=== PATIENT | female | born 1995 | race Caucasian/White ===

== ENCOUNTER 2021-08-24 15:34 | Emergency (ER) | payer OTHER, SELFPAY ==
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
--- NOTE | 2021-08-24 17:02 | RAD REPORT ---
EXAM DESCRIPTION: RAD - Tib Fib Right - 08/24/2021 4:54 pm CLINICAL HISTORY: fall COMPARISON: No comparisons FINDINGS: No acute fracture or dislocation is seen.
--- NOTE | 2021-08-24 17:11 | RAD REPORT ---
EXAM DESCRIPTION: RAD - Foot Right 3 View - 08/24/2021 4:54 pm CLINICAL HISTORY: fall Fall, trauma, pain COMPARISON: No comparisons FINDINGS: No acute fracture or dislocation seen.
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
[2021-08-24 19:15] VITALS: BP 124/82; TEMP 98.4; O2SAT 98
== END 2021-08-24 18:33 | disposition home or self-care (01) ==
LOC: ER 15:34
DX: S16.1XXA Strain of muscle, fascia and tendon at neck level, initial encounter (principal); S93.601A Unspecified sprain of right foot, initial encounter; V19.3XXA Pedal cyclist (driver) (passenger) injured in unspecified nontraffic accident, initial encounter; Y93.55 Activity, bike riding; Y92.9 Unspecified place or not applicable; R21 Rash and other nonspecific skin eruption; Z88.1 Allergy status to other antibiotic agents; Z91.018 Allergy to other foods; F17.210 Nicotine dependence, cigarettes, uncomplicated
CPT/HCPCS: 70450; 72125; 99284

== ENCOUNTER 2024-10-30 16:58 | Emergency (ER) | payer OTHER ==
--- OUTSIDE RECORDS SUMMARY | 2024-10-30 17:03 | XMS REPORT | Continuity of Care Document ---
Author Name Unknown Address [address] [facility] [address] [place] [address] [facility] thconnect Address [address] [facility] [address] [place] [address] Care Team Providers Care Bus Company Manager Name Role Phone JESSICA WALKER Attending Clinician Unavailab PEDRO Moya Attending Clinician Unavailab CHAO Washburn Attending Clinician UnavailTRENA Addison Attending Clinician Unavailable BILL HANCOCK Attending Clinician Unavailable SERA PAZ Attending Clinician Unavailable GAETANO RANDALL Attending Clinician Unavailable NASIR PERSON Attending Clinician Unavailable JULI DANIEL Attending Clinician Unavailable CARLYLE BOWEN Attending Clinician Unavailab sebastian DONOHUE_GRANT Attending Clinician Unavailable KEISHA AMIN Attending Clinician Unavail able MARY TRACEY Attending Clinician UnavailJERRY Nleson Attending Clinician Unavailable Jun Attending Clinician Unavailable KEMAR DE LEON Attending Clinician Unavailable YUKO FIERRO Attending Clinician Unavailable BENJY PEDROZA Attending Clinician Unavailab MONY Jones Attending Clinician Unavailable GAETANO WOOD Attending Clinician UnavailJOSÉ LUIS Mathews Attending Clinician Unavailable KARLEY NOLAND Attending Clinician Unavailable JUSTIN SCHREIBER Attending Clinician Unavaila GAETANO Johnson Attending Clinician UnavailAME Cantor Attending Clinician Unavailable JENNIFER MAYFIELD Attending Clinician TRISTIN Watkins Attending Clinician MARY Giang Attending Clinician Unavailable SHAYNE Admitting Clinician Unavailable Armand_Unique Admitting Clinician Unavailable JUSTIN SCHREIBER Admitting Clinician Unavaila GAETANO Ibarra Admitting Clinician UnavailAME Cantor Admitting Clinician Unavailable Payers Payer Name Policy Type Policy Number Effective Date Expirati on Date Source [place] [place] (MEDICAID) [id number] 2020 00:00:00 [facility] [employer] 1997 [facility] (MEDICAID HMO) [id number] Problems Condition Name Condition Details Condition Category Status Onset Date Resolution Date Last Treatment Date Treating Clinician Comments Source Pediculosi s capitis Pediculosi s Capitis Problem Active 2023-11 00:00: 00 [facility] Infestatio n by Phthirus pubis Infestatio n by Phthirus Pubis Problem Active 2023-11 00:00: 00 [facility] Schizophre kristen Schizophre kristen Problem Active 2023-11 00:00: 00 [facility] Acute pharyngiti s Acute Pharyngiti s Problem Active 03-03 00:00: 00 [facility] Dysuria Dysuria Problem Active 03-03 00:00: 00 [facility] Exposure to sexually transmissi ble disorder Exposure to Sexually Transmissi ble Disorder Problem Active 03-03 00:00: 00 [facility] Injury of right wrist Injury of Right Wrist Problem Active 03-03 00:00: 00 [facility] Body mass index 25-29 - overweight Body Mass Index 25-29 - Overweight Problem Active 03-03 00:00: 00 [facility] Overweight Overweight Problem Active 03-03 00:00: 00 [facility] Schizophre kristen Schizophre kristen Problem Active 06-06 00:00: 00 [facility] Bipolar disorder Bipolar Disorder Problem Active 06-06 00:00: 00 [facility] Anxiety Anxiety Problem Active 06-06 00:00: 00 [facility] Depressive disorder Depressive Disorder Problem Active 06-06 00:00: 00 [facility] Dysmenorrh ea Dysmenorrh ea Problem Active 2017-11 00:00: 00 [facility] Chronic pelvic pain of female Chronic Pelvic Pain of Female Problem Active 2017-11 00:00: 00 [facility] Female pelvic inflammato ry disease Female Pelvic Inflammato ry Disease Problem Active 07-20 00:00: 00 [facility] At increased risk of sexually transmitte d infection At Increased Risk of Sexually Transmitte d Infection Problem Active 07-20 00:00: 00 [facility] Venereal disease screening Venereal Disease Screening Problem Active 07-20 00:00: 00 [facility] Chlamydial cervicitis Chlamydial Cervicitis Problem Active 07-20 00:00: 00 [facility] Anxiety state Anxiety State Problem Active [facility] Hemorrhoid s Hemorrhoid s Problem Active [facility] Upper respirator y infection Upper Respirator y Infection Problem Active [facility] Urinary tract infectious disease Urinary Tract Infectious Disease Problem Active [facility] Cervical intraepith elial neoplasia grade 1 Cervical Intraepith elial Neoplasia Grade 1 Problem Active [facility] Vaginal discharge Vaginal Discharge Problem Active [facility] Menorrhagi a Menorrhagi a Problem [facility] Excessive and frequent menstruati on Excessive and Frequent Menstruati on Problem Active [facility] Irregular periods Irregular Periods Problem Active [facility] Missed period Missed Period Problem Active [facility] Placenta previa partialis Placenta Previa Partialis Problem Active [facility] - induced hypertensi on - induced Hypertensi on Problem Active [facility] Pre-eclamp homero Pre-eclamp homero Problem Active [facility] Maternal drug exposure Maternal Drug Exposure Problem Active [facility] Abscess Abscess Problem Active [facility] Increased frequency of urination Increased Frequency of Urination Problem [facility] Atypical squamous cells of undetermin ed significan ce on cervical Papanicola ou smear Atypical Squamous Cells of Undetermin ed Significan ce on Cervical Papanicola ou Smear Problem Active [facility] Low lying placenta Low Lying Placenta Problem Active [facility] Platelet count below reference range Platelet Count below Reference Range Problem Active [facility] Complainin g of pelvic pain Complainin g of Pelvic Pain Problem Active [facility] Chlamydial infection Chlamydial Infection Problem Active [facility] Unemployed Complaint [facility] Disturbanc e in mood Complaint [facility] Severe manic bipolar I disorder with psychotic features, mood-congr uent Complaint [facility] Generalize d anxiety disorder Complaint [facility] Panic attack Complaint [facility] Cannabis dependence Complaint [facility] Amphetamin e dependence Complaint [facility] Cocaine dependence Complaint [facility] Attention deficit hyperactiv ity disorder Complaint [facility] Borderline personalit y disorder Complaint [facility] Posttrauma tic stress disorder Complaint [facility] Injury of head Complaint [facility] Fracture of three ribs Complaint [facility] History of tonsillect don Complaint [facility] Allergies, Adverse Reactions, Alerts Allergy Name Allergy Type Status Severity Reaction(s) Onset Date Inactive Date Treating Clinician Comments Source Pear Allergy to substanc e Active Rash/Hives, Dyspnea, Nausea, Swelling 1998-11 12:00: 00 [facility] Pear Food Allergy Active 1998-11 00:00: 00 [facility] amoxicil malik Drug Allergy Active 1997-11 00:00: 00 [facility] Amoxicil malik Allergy to substanc e Active Moderate to severe Hives [facility] Social History Smoking Status Start Date Stop Date Source Never Smoker [facility] Heavy Tobacco Smoker [facility] Medications Ordered Medication Name Filled Medication Name Start Date Stop Date Current Medication? Ordering Clinician Indication Dosage Frequency Signature (SIG) Comments Components Source Depakote 500 mg tablet,antonio yed release Take 1 tablet twice a day by oral route. Depakote 500 mg tablet,antonio yed release Take 1 tablet twice a day by oral route. No 1 BID Depakote 500 mg tablet,del ayed release Take 1 tablet twice a day by oral route. [facility] Natroba 0.9 % topical suspension APPLY 30 - 120 MILLILITERS BY TOPICAL ROUTE TO DRY HAIR, SATURATING HAIR AND SCALP. AFTER 10 MIN RINSE WITH WARM WATER. MAY REPEAT IN 7 DAYS Natroba 0.9 % topical suspension APPLY 30 - 120 MILLILITERS BY TOPICAL ROUTE TO DRY HAIR, SATURATING HAIR AND SCALP. AFTER 10 MIN RINSE WITH WARM WATER. MAY REPEAT IN 7 DAYS No Natroba 0.9 % topical suspension APPLY 30 - 120 MILLILITER S BY TOPICAL ROUTE TO DRY HAIR, SATURATING HAIR AND SCALP. AFTER 10 MIN RINSE WITH WARM WATER. MAY REPEAT IN 7 DAYS [facility] permethrin 1 % topical liquid APPLY A SUFFICIENT AMOUNT OF SHAMPOO to pubic BY TOPICAL ROUTE ONCE ALLOW TO REMAIN ON HAIR FOR 10 MINUTES BEFORE RINSING OFF WITH WATER permethrin 1 % topical liquid APPLY A SUFFICIENT AMOUNT OF SHAMPOO to pubic BY TOPICAL ROUTE ONCE ALLOW TO REMAIN ON HAIR FOR 10 MINUTES BEFORE RINSING OFF WITH WATER No permethrin 1 % topical liquid APPLY A SUFFICIENT AMOUNT OF SHAMPOO to pubic BY TOPICAL ROUTE ONCE ALLOW TO REMAIN ON HAIR FOR 10 MINUTES BEFORE RINSING OFF WITH WATER [facility] Seroquel 100 mg tablet Take 1 tablet twice a day by oral route. Seroquel 100 mg tablet Take 1 tablet twice a day by oral route. No 1 BID Seroquel 100 mg tablet Take 1 tablet twice a day by oral route. [facility] sertraline sertraline No sertraline [facility] buspirone buspirone No buspirone [facility] hydroxyzine HCl hydroxyzine HCl No hydroxyzin e HCl [facility] Latuda 120 mg tablet Take 1 tablet every day by oral route. Latuda 120 mg tablet Take 1 tablet every day by oral route. No 1 Q1D Latuda 120 mg tablet Take 1 tablet every day by oral route. [facility] metronidazo le 500 mg tablet Take 1 tablet every 12 hours by oral route for 7 days. metronidazo le 500 mg tablet Take 1 tablet every 12 hours by oral route for 7 days. No metronidaz ole 500 mg tablet Take 1 tablet every 12 hours by oral route for 7 days. [facility] permethrin 5 % topical cream APPLY (THOROUGHLY MASSAGE INTO SKIN FROM HEAD TO SOLES OF FEET) BY TOPICAL ROUTE ONCE LEAVE ON FOR 8-14 HR, THEN REMOVE BY THOROUGH WASHING permethrin 5 % topical cream APPLY (THOROUGHLY MASSAGE INTO SKIN FROM HEAD TO SOLES OF FEET) BY TOPICAL ROUTE ONCE LEAVE ON FOR 8-14 HR, THEN REMOVE BY THOROUGH WASHING No permethrin 5 % topical cream APPLY (THOROUGHL Y MASSAGE INTO SKIN FROM HEAD TO SOLES OF FEET) BY TOPICAL ROUTE ONCE LEAVE ON FOR 8-14 HR, THEN REMOVE BY THOROUGH WASHING [facility] Xulane 150 mcg-35 mcg/24 hr transdermal patch Apply 1 patch every week by transdermal route. Xulane 150 mcg-35 mcg/24 hr transdermal patch Apply 1 patch every week by transdermal route. No Xulane 150 mcg-35 mcg/24 hr transderma l patch Apply 1 patch every week by transderma l route. [facility] Immunizations Ordered Immunization Name Filled Immunization Name Date Status Comments Source tetanus toxoid, adsorbed tetanus toxoid, adsorbed Unknown Completed [facility] Vital Signs Vital Name Observation Time Observation Value Comments S ource BMI (Body Mass Index) 2024-09-16 00:00:00 24.9 kg/m2 [facility] Body Weight 2024-09-16 00:00:00 2548.8 [oz_av] [facility] Height 2024-09-16 00:00:00 67 [in_i] [facility] BP Diastolic 2024-09-16 00:00:00 80 mm[Hg] [facility] BP Systolic 2024-09-16 00:00:00 124 mm[Hg] [facility] Body Weight 2024-06-22 00:00:00 159 [lb_av] [facility] BMI (Body Mass Index) 2024-06-22 00:00:00 24.9 kg/m2 [facility] Height 2024-06-22 00:00:00 67 [in_i] [facility] BP Systolic 2024-06-22 00:00:00 142 mm[Hg] [facility] BP Diastolic 2024-06-22 00:00:00 89 mm[Hg] [facility] Height 2024-05-22 00:00:00 67 [in_i] [facility] BP Diastolic 2024-05-22 00:00:00 80 mm[Hg] [facility] BMI (Body Mass Index) 2024-05-22 00:00:00 27.5 kg/m2 [facility] Body Weight 2024-05-22 00:00:00 2806 [oz_av] [facility] BP Systolic 2024-05-22 00:00:00 119 mm[Hg] [facility] BP Systolic 2024-03-03 00:00:00 118 mm[Hg] [facility] BMI (Body Mass Index) 2024-03-03 00:00:00 26.5 kg/m2 [facility] Body Weight 2024-03-03 00:00:00 2705 [oz_av] [facility] Height 2024-03-03 00:00:00 67 [in_i] [facility] BP Diastolic 2024-03-03 00:00:00 79 mm[Hg] [facility] BP Diastolic 2021-06-06 00:00:00 79 mm[Hg] [facility] Height 2021-06-06 00:00:00 65 [in_i] [facility] BMI (Body Mass Index) 2021-06-06 00:00:00 23.3 kg/m2 [facility] BP Systolic 2021-06-06 00:00:00 112 mm[Hg] [facility] Body Weight 2021-06-06 00:00:00 140 [lb_av] [facility] Procedures Procedure Date / Time Performed Performing Clinician Source XR, wrist, 3 or more view 2024-03-03 00:00:00 [facility] Tonsillectomy 2012-11-01 00:00:00 Gualberto delcid [facility] Plan of Care Planned Activity Planned Date Details Comments Source Diagnostic Test Pending 2021-06-06 00:00:00 RPR (rapid plasma reagin), serum [code = RPR (rapid plasma reagin), serum] [facility] Program Diagnostic Test Pending 2021-06-06 00:00:00 HIV 1+2 AB + HIV 1 p24 Ag, qualitative immunoassay, serum [code = HIV 1+2 AB + HIV 1 p24 Ag, qualitative immunoassay, serum] [facility] Diagnostic Test Pending 2021-06-06 00:00:00 HBsAg (hepatitis B surface Ag), EIA, serum [code = HBsAg (hepatitis B surface Ag), EIA, serum] [facility] Diagnostic Test Pending 2021-06-06 00:00:00 cytology report, thin prep, smear or scraping, cervical or vaginal [code = cytology report, thin prep, smear or scraping, cervical or vaginal] [facility] Diagnostic Test Pending 2021-06-06 00:00:00 HCG, intact + beta subunit, quant, serum or plasma [code = HCG, intact + beta subunit, quant, serum or plasma] [facility] Diagnostic Test Pending 2021-06-06 00:00:00 test, urine [code = test, urine] [facility] Encounters Start Date/Time End Date/Time Encounter Type Admission Type Attending [facility] Facility Care Department Encounter ID Source 2024-03-03 11:38:00 Inpatient JESSICA GIRON [facility] [id number] [facility] 2023-04-19 12:26:22 Inpatient VLADIMIR GILBERT [id number] [facility] 2023-01-02 08:02:57 Inpatient [facility] [id number] [facility] 2023-01-01 16:34:31 Inpatient [facility] [id number] [facility] 2022-09-18 11:57:51 Inpatient [facility] [id number] [facility] 2024-10-28 15:43:00 2024-10-28 17:50:00 Emergency ER PEDRO BERRIOS [facility] [id number] [facility] 2024-09-16 00:00:00 2024-09-16 00:00:00 Grant Bradley, STAIN MAKER: [address], [address], [place] [address] , Ph. [facility] [id number] [facility] 2024-08-21 21:48:00 2024-08-22 02:45:00 Emergency ER CHAO PANG [facility] [id number] [facility] 2024-08-22 01:14:00 2024-08-22 01:14:00 Outpatient [facility] T[facility]NA [facility] [id number] [facility] 2024-06-22 11:38:00 2024-06-22 11:38:00 Outpatient KARISSA BILL [facility] [id number] [facility] 2024-06-22 00:00:00 2024-06-22 00:00:00 NIGEL Ahmadi-BC: [address], [address], [place] [address] , Ph. [phone] [facility] [id number] [facility] 2024-05-25 04:19:00 2024-05-25 07:01:00 Emergency ER PEDRO BERRIOS [facility] [id number] [facility] 2024-05-22 00:00:00 2024-05-22 00:00:00 Dhruv Santizo MD: [address], [address], [place] [address] , Ph. [facility] [id number] [facility] 2024-03-03 00:00:00 2024-03-03 00:00:00 NIGEL Dorman-C: [address], [address], [place] [address] , Ph. [facility] [id number] [facility] 2023-10-04 17:45:00 2023-10-04 19:43:00 Emergency ER SERA PAZ [facility] [id number] [facility] 2021-12-04 11:22:00 2021-12-04 14:57:00 Emergency ER GAETANO RANDALL [facility] [id number] [facility] 2021-11-11 12:31:00 2021-11-11 14:57:00 Emergency ER NASIR PERSON [facility] [id number] [facility] 2021-10-14 22:57:00 2021-10-14 22:57:00 Outpatient FARZAD PANCHALLASHONDAUJLI [facility] [id number] [facility] 2021-09-03 23:22:00 2021-09-04 01:38:00 Emergency ER JESSICARLYLE PORRAS [facility] [id number] [facility] 2021-08-01 18:37:00 2021-08-02 00:00:00 Emergency ER RANDALLKMGAETANO [facility] [id number] [facility] 2021-06-06 00:00:00 2021-06-06 00:00:00 Grant Donohue, STAIN MAKER: [address], [place] [address] , Ph. ROCAEL [facility] [id number] [facility] 2021-05-30 01:00:00 2021-05-30 01:00:00 Outpatient ROCAEL SCHMID [facility] [id number] [facility] 2021-05-19 03:24:00 2021-05-19 03:24:00 Outpatient LISTER_MELI SSA [facility] [id number] [facility] 2021-05-16 02:26:00 2021-05-16 02:26:00 Outpatient LISTER_MELI [facility] [id number] [facility] 2021-04-08 06:24:00 2021-04-08 12:53:00 Emergency ER ELOISAKEISHA [facility] [id number] [facility] 2021-03-19 10:26:00 2021-03-19 10:30:00 Emergency ER NASIR PERSON [facility] [id number] [facility] 2021-03-09 07:22:00 2021-03-09 07:55:00 Emergency ER GAETANO RANDALL [facility] [id number] [facility] 2021-02-28 18:43:00 2021-02-28 20:45:00 Emergency ER MARY TRACEY [facility] [id number] [facility] 2021-01-27 07:08:00 2021-01-27 11:40:00 Emergency ER NASIR PERSON [facility] [id number] [facility] 2020-10-01 10:39:00 2020-10-01 13:18:00 Emergency ER JERRY MAYNARD [facility] [id number] [facility] 2020-09-18 02:20:00 2020-09-18 02:20:00 Outpatient G_[id number] [facility] 2019-07-29 11:41:00 2019-07-29 14:05:00 Emergency ER KEMAR DE LEON [facility] [id number] [facility] 2019-06-02 09:15:00 2019-06-02 13:45:00 Emergency ER JERRY MAYNARD [facility] [id number] [facility] 2018-07-20 14:49:00 2018-07-20 14:49:00 Outpatient YUKO WILL [facility] [id number] [facility] 2017-03-31 09:35:00 2017-03-31 13:45:00 Emergency ER JERRY MAYNARD [facility] [id number] [facility] 2016-04-10 22:52:00 2016-04-11 00:45:00 Emergency ER BENJY PEDROZA [facility] [id number] [facility] 2016-04-09 12:13:00 2016-04-09 14:07:00 Emergency ER MONY HASTINGS [facility] [id number] [facility] 2016-02-11 16:11:00 2016-02-11 16:11:00 Outpatient GAETANO COLVIN [facility] [id number] [facility] 2016-02-09 19:18:00 2016-02-09 20:41:00 Emergency ER JOSÉ LUIS BROWN [facility] [id number] [facility] 2016-01-01 11:43:00 2016-01-01 11:43:00 Outpatient GAETANO COLVIN [facility] [id number] [facility] 2015-11-07 15:03:00 2015-11-07 15:03:00 Outpatient GAETANO COLVIN [facility] [id number] [facility] 2015-08-12 12:39:00 2015-08-12 12:39:00 Outpatient GAETANO COLVIN [facility] [id number] [facility] 2015-07-12 14:00:00 2015-07-12 14:00:00 Outpatient GAETANO COLVIN [facility] [id number] [facility] 2015-06-11 12:19:00 2015-06-11 12:19:00 Outpatient GAETANO COLVIN [facility] [id number] [facility] 2015-04-24 15:24:00 2015-04-24 16:29:00 Emergency ER KARLEY NOLAND [facility] [id number] [facility] 2015-04-11 12:07:00 2015-04-11 12:07:00 Outpatient GAETANO COLVIN [facility] [id number] [facility] 2015-01-16 11:20:00 2015-01-16 11:20:00 Outpatient GAETANO COLVIN [facility] [id number] [facility] 2014-12-14 11:38:00 2014-12-14 11:38:00 Outpatient GAETANO COLVIN [facility] [id number] [facility] 2014-12-03 11:55:00 2014-12-03 11:55:00 Outpatient GAETANO COLVIN [facility] [id number] [facility] 2014-11-05 11:07:00 2014-11-05 11:07:00 Outpatient GAETANO COLVIN [facility] [id number] [facility] 2014-10-28 14:12:00 2014-10-28 15:53:00 Emergency ER JOSÉ LUIS BROWN [facility] [id number] [facility] 2014-10-20 07:54:00 2014-10-21 19:03:00 Inpatient ER JUSTIN [facility] [id number] [facility] 2014-10-18 09:22:00 2014-10-18 09:22:00 Outpatient GAETANO COLVIN [facility] [id number] [facility] 2014-10-15 13:17:00 2014-10-16 17:30:00 Inpatient GAETANO COLVIN [facility] [id number] [facility] 2014-10-10 09:59:00 2014-10-10 09:59:00 Outpatient GAETANO BERRIOS [facility] [id number] [facility] 2014-10-08 09:46:00 2014-10-08 09:46:00 Outpatient SOFÍA GAETNAO WOOD [facility] [id number] [facility] 2014-10-02 11:04:00 2014-10-02 11:04:00 Outpatient [facility] [facility] [id number] [facility] 2014-09-25 12:34:00 2014-09-25 12:34:00 Outpatient GAETANO COLVIN [facility] [id number] [facility] 2014-09-18 08:10:00 2014-09-18 08:10:00 Outpatient GAETANO COLVIN [facility] [id number] [facility] 2014-09-14 10:23:00 2014-09-14 10:23:00 Outpatient GAETANO COLVIN [facility] [id number] [facility] 2014-09-11 16:13:00 2014-09-11 16:13:00 Outpatient GAETANO COLVIN [facility] [id number] [facility] 2014-08-27 13:10:00 2014-08-27 15:45:00 Emergency ER JUSTIN SCHREIBER [facility] [id number] [facility] 2014-08-22 16:19:00 2014-08-22 16:19:00 Outpatient GAETANO COLVIN [facility] [id number] [facility] 2014-08-06 00:35:00 2014-08-06 10:20:00 Inpatient ER [facility] [id number] [facility] 2014-07-30 08:05:00 2014-07-30 08:05:00 Outpatient KM COLVINORY [facility] [id number] [facility] 2014-07-10 15:46:00 2014-07-10 15:46:00 Outpatient FARZAD HARRISISRAEL GAETANO [facility] [id number] [facility] 2014-06-26 12:51:00 2014-06-26 16:00:00 Emergency ER GAETANO ROWLAND [facility] [id number] [facility] 2014-06-14 11:05:00 2014-06-14 11:05:00 Outpatient FARZAD HARRISISRAEL GAETANO [facility] [id number] [facility] 2014-05-17 11:17:00 2014-05-17 11:17:00 Outpatient FARZAD HARRISISRAEL GAETANO [facility] [id number] [facility] 2014-04-25 10:38:00 2014-04-25 10:38:00 Outpatient FARZAD HARRISISRAEL GAETANO [facility] [id number] [facility] 2014-03-23 10:18:00 2014-03-23 13:42:00 Emergency ER BENJY PEDROZA [facility] [id number] [facility] 2014-03-22 12:54:00 2014-03-22 12:54:00 Outpatient GAETANO COLVIN [facility] [id number] [facility] 2014-03-21 09:47:00 2014-03-21 09:47:00 Outpatient GAETANO COLVIN [facility] [id number] [facility] 2014-02-16 21:39:00 2014-02-17 20:25:00 Inpatient ER [facility] [id number] [facility] 2013-08-11 07:58:00 2013-08-11 13:48:00 Emergency ER BENJY PEDROZA [facility] [id number] [facility] 2007-12-24 19:09:00 2007-12-24 21:55:00 Emergency ER JENNIFER MAYFIELD [facility] [id number] [facility] 2007-03-10 11:13:00 2007-03-10 11:13:00 Outpatient EL TRISTIN BRO [facility] [id number] [facility] 2004-02-16 13:00:00 2004-02-16 15:15:00 Emergency ER MARY ALANIZ [facility] [id number] [facility] 1998-12-08 20:13:00 1998-12-08 21:45:00 Emergency ER YOVANY BENJY [facility] [id number] [facility] Results Test Description Test Time Test Comments Results Result Co mments Source [id number]00* Test Item Value Reference Range Interpretation Comme nts salicylate level (test code = salicylate level) < 0.5 2.8-20.0 L [facility]et[facility] [Mass/volume] in Serum or [id number] 00:34:00* Test Item Value Reference Range Interpretation Comme nts acetaminophen level (test co de = acetaminophen level) < 5.2 10.0-30.0 L [facility] [id number] 00:34:00* Test Item Value Reference Range Interpretation Comme nts alcohol level (test code = a lcohol level) < 10.0 0.00-10.1 [facility]/[id number] 00:07:00* Test Item Value Reference Range Interpretation Comme nts prothrombin time (test code = prothrombin time) 11.5 seconds 10.3-12.3 INR (test code = INR) 1.06 [facility] [id number] 00:07:00* Test Item Value Reference Range Interpretation Comme nts partial thromboplastin time (test code = partial thromboplastin time) 26.3 seconds 22.5-37.0 [facility] 2000 panel - Serum or Plasma 2024-08-22 00:05:00* Test Item Value Reference Range Interpretation Comme nts glucose (test code = glucose) 96 mg/dL 74-106 blood urea nitrogen (test co de = blood urea nitrogen) 17 mg/dL 6-20 osmolality calculated,serum (test code = osmolality calculated,serum) 275 mOsm/kg 280-300 L creatinine (test code = creatinine) 0.90 mg/dL 0.50-0.90 glomerular filtration rate ( test code = glomerular filtration rate) > 60.00 BUN/creatinine ratio (test c ode = BUN/creatinine ratio) 18.9 12.0-20.0 sodium level (test code = so dium level) 137 mmol/L 135-145 potassium level (test code = potassium level) 3.7 mmol/L 3.5-5.2 chloride level (test code = chloride level) 101 mmol/L 98-108 CO2 (test code = CO2) 21 mmol/L 21-32 anion gap (test code = anion gap) 18.7 mEq/L 12.0-20.0 calcium level (test code = calcium level) 10.0 mg/dL 8.6-10.0 total protein (test code = t otal protein) 7.2 g/dL 6.6-8.7 albumin (test code = albumin) 4.7 g/dL 3.5-5.2 globulin (test code = globulin) 2.5 g/dL 1.5-4.5 A/G ratio (test code = A/G ratio) 1.9 >1.0 bilirubin,total (test code = bilirubin,total) 0.3 mg/dL 0.0-1.2 AST/SGOT (test code = AST/SGOT) 19 U/L 15-32 ALT/SGPT (test code = ALT/SGPT) 14 U/L 0-33 alkaline phosphatase, total (test code = alkaline phosphatase, total) 81 U/L 35-105 [facility] W Auto Differential panel - [id number] 23:53:00 * Test Item Value Reference Range Interpretation Comme [facility] white blood count (test code = white blood count) 10.5 K/uL 4.0-11.5 red blood count (test code = red blood count) 4.43 M/uL 3.80-5.20 hemoglobin (test code = hemoglobin) 13.1 g/dL 10.5-15.7 hematocrit (test code = hematocrit) 39.0 % 34.0-50.0 mean corpuscular volume (test code = mean corpuscular volume) 88.0 fL 86.0-100.0 mean corpuscular hemoglobin (test code = mean corpuscular hemoglobin) 29.6 pg 26.2-33.4 mean corpuscular HGB conc (test code = mean corpuscular HGB conc) 33.6 g/dL 30.0-34.0 red cell distribution width (test code = red cell distribution width) 12.6 % 12.0-15.5 platelet count (test code = platelet count) 192 K/uL 165-450 ipf# (test code = ipf#) 46.3 ipf% (test code = ipf%) 24.1 % 0-8 H mean platelet volume (test code = mean platelet volume) 13.7 fL 9.4-12.6 H NRBC% (test code = NRBC%) 0 /100 WBC 0-0.2 NRBC# (test code = NRBC#) 0 K/uL morphology comment (test code = morphology comment) NORMAL RBC MORPH. normal RBC. [facility] panel drug [id number] 23:06:00* Test Item Value Reference Range Interpretation Comme nts drug screen note (test code = drug screen note) . amphetamines screen urine (t est code = amphetamines screen urine) POSITIVE negative A barbiturates, urine quant. ( test code = barbiturates, urine quant.) NEGATIVE negative benzodiazepines screen urine (test code = benzodiazepines screen urine) NEGATIVE negative cannabinoids (test code = cannabinoids) POSITIVE negative A cocaine (test code = cocaine) NEGATIVE negative opiates (test code = opiates) NEGATIVE negative hydrocodone (test code = hydrocodone) NEGATIVE negative fentanyl (test code = fentanyl) NEGATIVE negative phencyclidine (test code = phencyclidine) NEGATIVE negative methadone (test code = methadone) NEGATIVE negative propoxyphene (test code = propoxyphene) NEGATIVE negative oxycodone (test code = oxycodone) NEGATIVE negative [facility], [id number] 22:56:00* Test Item Value Reference Range Interpretation Comme nts HCG qualitative,urine (test code = HCG qualitative,urine) NEGATIVE neg [facility] [id number] 22:55:00* Test Item Value Reference Range Interpretation Comme nts color, urine (test code = co china, urine) Yellow appearance, urine (test code = appearance, urine) Clear clear urine glucose (test code = u rine glucose) Negative negative bilirubin, urine (test code = bilirubin, urine) Negative negative ketone, urine (test code = k etone, urine) Negative negative specific gravity,urine (test code = specific gravity,urine) 1.029 1.003-1.030 blood urine (test code = blo od urine) Negative negative pH,urine (test code = pH,urine) 5.500 5-9 protein urine (UA) (test cod e = protein urine (UA)) 1+ negative A urobilinogen, urine (test co de = urobilinogen, urine) 1.0 mg/dL 0.2-1.0 nitrate, urine (test code = nitrate, urine) Negative negative urine leukocyte esterase (te st code = urine leukocyte esterase) Negative negative RBC, urine (test code = RBC, urine) 0-2 0-5 WBC, urine (test code = WBC, urine) 3-5 0-5 epithelial cell (test code = epithelial cell) 11-20 0-5 A bacteria, urine (test code = bacteria, urine) Occasional none detect casts,urine (test code = casts,urine) 11-20 none detect A urine culture added? (test c ode = urine culture added?) NO [facility] GroupUrinalysis macro (dipstick) panel - [id number] 11:12:12* Test Item Value Reference Range Interpretation Comme nts Leukocytes (test code = Leukocytes) Negative Nitrite (test code = Nitrite) negative Urobilinogen (test code = Urobilinogen) .2 Protein (test code = Protein) Negative pH (test code = pH) 5.5 Blood (test code = Blood) Negative Specific [place] (test code = Specific [place]) 1.020 Ketone (test code = Ketone) Negative Bilirubin (test code = Bilirubin) Negative Glucose (test code = Glucose) Negative Appearance (test code = Appearance) Clear Color (test code = Color) Yellow [facility], [id number] 11:12:12* Test Item Value Reference Range Interpretation Comme nts Leukocytes (test code = Leukocytes) Negative Nitrite (test code = Nitrite) negative Urobilinogen (test code = Urobilinogen) .2 Protein (test code = Protein) Negative pH (test code = pH) 5.5 Blood (test code = Blood) Negative Specific [place] (test code = Specific [place]) 1.020 Ketone (test code = Ketone) Negative Bilirubin (test code = Bilirubin) Negative Glucose (test code = Glucose) Negative Appearance (test code = Appearance) Clear Color (test code = Color) Yellow [facility] test, [id number] 11:11:22* Test Item Value Reference Range Interpretation Comme nts Test (test code = Test) negative [facility]inUrinalysis macro (dipstick) panel - [id number] 10:27:00* Test Item Value Reference Range Interpretation Comme nts Leukocytes (test code = Leukocytes) Negative Nitrite (test code = Nitrite) negative Urobilinogen (test code = Urobilinogen) .2 Protein (test code = Protein) Negative pH (test code = pH) 5.5 Blood (test code = Blood) Negative Specific [place] (test code = Specific [place]) 1.030 Ketone (test code = Ketone) Negative Bilirubin (test code = Bilirubin) Negative Glucose (test code = Glucose) Negative Appearance (test code = Appearance) Clear Color (test code = Color) Yellow [facility]inChoriogonadotropin.intact+Beta subunit [Units/volume] in Serum or [id number] 00:00:00* Test Item Value Reference Range Interpretation Comme nts Choriogonadotropin.intact+Be ta subunit [Units/volume] in Serum or Plasma (test code = 67040-6) <1 [facility] ProgramReagin Ab [Presence] in Serum by RPR 2021-06-07 00:00:00* Test Item Value Reference Range Interpretation Comme nts Reagin Ab [Presence] in Seru m by RPR (test code = 95126-6) non reactive non reactive [facility] Out[facility] ProgramHIV 1+2 Ab+HIV1 p24 Ag [Presence] in Serum or Plasma by [id number] 00:00:00* Test Item Value Reference Range Interpretation Comme nts HIV 1+2 Ab+HIV1 p24 Ag [Presence] in Serum or Plasma by Immunoassay (test code = 63757-3) non reactive non reactive [facility] Out[facility] ProgramHepatitis B virus surface Ag [Presence] in Serum or Plasma by [id number] 00:00:00* Test Item Value Reference Range Interpretation Comme nts Hepatitis B virus surface Ag [Presence] in Serum or Plasma by Immunoassay (test code = 5196-1) negative negative [facility] Outreach ProgramCytology report of Cervical or vaginal smear or scraping Cyto stain.thin [id number] 00:00:00* Test Item Value Reference Range Interpretation Comme nts age gdln acog testing (test code = age gdln acog testing) 21-29 Cytology report of Cervical or vaginal smear or scraping Cyto stain (test code = 12965-5) comment Statement of adequacy [Interpretation] of Cervical or vaginal smear or scraping by Cyto stain (test code = 47391-4) comment Intervention Nurse who read Cyto sta in of Cervical or vaginal smear or scraping (test code = 56520-9) comment Microscopic observation [Martin ntifier] in Unspecified specimen by Other stain (test code = 55870-3) . note: (test code = note:) comment Cytology report of Cervical or vaginal smear or scraping Cyto stain.thin prep (test code = 48282-1) comment Chlamydia trachomatis rRNA [Presence] in Cervix by KAY with probe detection (test code = 29536-5) negative negative Neisseria gonorrhoeae rRNA [Presence] in Cervix by KAY with probe detection (test code = 20043-8) negative negative Trichomonas vaginalis rRNA [Presence] in Unspecified specimen by KAY with probe detection (test code = 12349-9) negative negative [facility] Outreach Programpregnancy test, [id number] 15:09:00* Test Item Value Reference Range Interpretation Comme nts HCG (test code = HCG) negative [facility]
--- NOTE | 2024-10-30 19:20 | ER ---
Nurse's Notes [facility] Name: Meghana Aquino Age: 29 yrs Sex: Female : 1995 Arrival Date: 10/30/2024 Time: 16:58 Bed IW3 Private MD: Diagnosis: Assessment: 10/30 18:40 General: This RN was approached by pt in [facility]. Pt reported that she is having a kb3 miscarriage and was seen at the ER in [place] and they sent her home. She is unable to follow up with OB and "everyone told her to norman back to the ER because she never should have been sent home." This RN apologized for the wait and told her we would have a doctor see her as fast as possible. . ED Course: 17:02 Patient arrived in ED. mr 17:41 Meseret Parker PA-C is PHCP. sb4 17:41 Vicki Kovacs MD is Attending Physician. sb4 19:13 Patient's name was called from ER [facility]. No response. cm10 19:19 Patient's name was called from [facility]. Unable to locate patient. Will disposition as cm10 left without being seen by a provider. Administered Medications: No medications were administered Outcome: 18:16 Patient left the ED. jl7 19:19 Patient left the ED. cm10 Signatures: Kaley Aleman Reg Reg mr OzunaDaniela, RN RN jl7 Rosa Isela Castro, BLU RN john3 Meseret Parker PA-C PA-C sb4 Liz Tolbert RN RN cm10
== END 2024-10-30 19:19 | disposition left against medical advice (07) ==
LOC: ER 16:58
DX: O20.0 Threatened abortion (principal); Z53.21 Procedure and treatment not carried out due to patient leaving prior to being seen by health care provider